=== PATIENT | female | born 1985 | race Caucasian/White ===

== ENCOUNTER 2019-02-09 17:20 | Inpatient (IN) | payer BC ==
[2019-02-09] VITALS (16 sets, daily range): BP systolic 114–135; BP diastolic 61–85; PULSE 71–97; TEMP 98.2–98.7
[~2019-02-09] VITALS: Ht 165.1 cm; Wt 72.3 kg
--- NOTE | 2019-02-09 17:30 | NUR ---
Pt arrives on unit via wheelchair with spouse. States ctx that began at 1600. Bloody show noted. Denies LOF and reports good movement. Changed into clean gown. EFM and toco applied. VSS. SVE per this RN /-[address] Gonzalez notified. Orders for admission. Admission assessment completed. IV started. Labs drawn. LR infusing. Pt updated on POC. Safety reviewed. Call light within reach. No questions or concerns at this time.
[2019-02-09] MEDS ORDERED: PRENATAL MVI (17:45)
[2019-02-09 19:18] LABS: HEMATOCRIT 40.3 % (37.0-47.0); MEAN CELL VOLUME 89 fl (80.0-100.0); MEAN CORPUSCULAR HEMOGLOBIN 31 pg (27.0-31.0); MEAN CORPUSCULAR HGB CONC 35 g/dl (33.0-37.0); MEAN PLATELET VOLUME 10.7 fl (7.4-10.4); PLATELET COUNT 184 K/mm3 (130-400); RED BLOOD COUNT 4.52 M/mm3 (4.10-5.30); REDCELL DISTRIBUTION WIDTH-CV 12.6 % (11.5-14.5)
[2019-02-09 20:21] LABS: BAND 1 % (0-10); LYMPHOCYTE 6 % (20.0-51.0); NEUTROPHILS 87 % (42.0-75.2); PLATELET ESTIMATE NORMAL (NORMAL)
[2019-02-10] VITALS (11 sets, daily range): BP systolic 97–120; BP diastolic 57–79; PULSE 78–95; TEMP 97.8–98.9
--- NOTE | 2019-02-10 00:19 | NUR ---
2149- Dr. Ramirez at bedside, patient 10cm and +2 station, ready to push. 2154- Patient placed in lithotomy, instructed on pushing. 2244- Dr. Gonzalez at nurse's station, updated on patient's progress. 2304- Dr. Gonzalez at bedside assessing progress. 2335- Dr. Gonzalez at bedside for delivery. 0019- Spontaneous delivery of viable female at this time. 0023- Spontaneous delivery of intact placenta, pitocin rapidly infusing at this time. 2 degree laceration repaired per Dr. Gonzalez. EBL 400cc. Apgars 9,9,9.
[2019-02-11 06:25] LABS: HEMATOCRIT 29.7 % (37.0-47.0); HEMOGLOBIN 9.9 g/dl (12.5-16.0)
[2019-02-11 08:15] VITALS: BP 108/64; PULSE 65; TEMP 98.2
[2019-02-11] MEDS ORDERED: IBU600 MG PO (12:50)
[2019-02-11] MEDS ORDERED: PERCOCET 325 MG1 TA2 PO (12:50)
== END 2019-02-11 16:20 | disposition home or self-care (01) | DRG 807 ==
LOC: LDRO 17:20 → LDR 17:41 → OB 02-10 03:00
PROVIDERS: ADMIT Obstetrics & Gynecology
PROC: 0KQM0ZZ Repair Perineum Muscle, Open Approach (ICD-10-PCS; principal; 2019-02-09)
PROC: 10E0XZZ Delivery of Products of Conception, External Approach (ICD-10-PCS; principal; 2019-02-09)
DX: O70.1 Second degree perineal laceration during delivery (principal); Z37.0 Single live birth; Z3A.41 41 weeks gestation of pregnancy
CPT/HCPCS: J2590; J7120

== ENCOUNTER → 2019-02-15 | Outpatient (CLI) | payer BC ==
[~2019-02-15] MED LIST: IBU600 MG PO; PERCOCET 325 MG1 TA2 PO; PRENATAL MVI
--- NOTE | 2019-02-15 14:52 | NUR ---
Pt, Fang Márquez Henrique, presents to walk-in clinic with 5 day old baby girl, Gladys Duenas for a evaluation. Gladys was born by to this mom. She has nursed some with a nipple shield and has some abrasions on the face of the nipples. The breasts are somewhat engorged at this meeting as well. Gladys was born on [birth year] and weighed 7#11.1oz (3490 gms). Today her weight is 7#2.4oz (3242 gms), about 1.5oz less than at Dr. Mohamud's office yesterday. Pt has not pumped or used any bottle feedings for baby. Voids and stools are meeting expectations. She has a clear void upon arrival to clinic and another after . Pt advised on use of cross cradle hold, compression of areola and bringing baby to breast more quickly with latching. FOB advised on helping to keep jaw open wider with latch. Pt states less pain with , no nipple shield used. After nursing bilaterally Gladys had a total weight gain of 2.4oz (68 gms). POC: Breastfeed q 2-3 hours. F/U: February 17 to verify is nursing effectively. All indicators except weight are on track. Questions invited and answered.
== END ==
LOC: OLC 10:11
DX: Z39.1 Encounter for care and examination of lactating mother (principal); Z71.89 Other specified counseling

== ENCOUNTER → 2019-02-17 | Outpatient (CLI) | payer BC ==
--- NOTE | 2019-02-17 14:59 | NUR ---
Pt, Fang Márquez Henrique, presents for outpatient consult with 7 day old baby girl, Gladys Duenas, and her spouse Eliu Duenas, to evaluate as at the walk-in clinic two days ago she was 7% down from weight. Gladys was born on [birth year] and weighed 7#11.1oz (3490 gms). On 02/15/19 she weighed 7#2.4oz (3242 gms), which was a loss from the previoud day at Dr. Mohamud's office. Today Gladys weighs 7#3.9oz (3284 gms), for a gain of 1.5oz in the last 2 days. Feeds, voids and stools are reported to be WNL. Pt is not pumping or providing and supplement feedings. Pt guided on latching, a little timid about bringing baby to breast quickly. After Gladys had a weight gain of 2.8oz (82 gms). POC: Continue ad maria eugenia. F/U: Clinic or appt as desired, none scheduled at this time. Questions invited and answered.
== END ==
LOC: LAC 14:08
DX: Z39.1 Encounter for care and examination of lactating mother (principal); Z71.89 Other specified counseling

== ENCOUNTER → 2019-02-22 | Outpatient (CLI) | payer BC ==
--- NOTE | 2019-02-22 17:15 | NUR ---
Pt, Fang Sandoval Henrique, presents to walk-in clinic with 12 day old baby girl, Gladys Duenas, for a evaluation. They have been seen in clinic for nipple pain and assistance nursing without the nipple sheildPamela Graham was born on [birth year]/10/[birth year] and weighed 7#11.1oz (3490 gms). At clinic on 02/15/19 she weighed 7#2.4oz (3242 gms). They were seen in consult on 02/17/19 and she weighed 7#3.9oz. Her transfer at that feeding was 82ml so they were advised to exclusive breastfeed and follow up at clinic today. Pt reports nipple pain in better. Today Gladys weighs 7#10.5oz for a gain of 6.6oz in 5 days. After independantly and without the nipple shield Gladys has a weight gain of 82gms (2.9oz). POC: continue ad maria eugenia. F/U: Anticipate at clinic next week. Questions invited and answered.
== END ==
LOC: OLC 10:11
DX: Z39.1 Encounter for care and examination of lactating mother (principal); Z71.89 Other specified counseling

== ENCOUNTER → 2019-03-08 | Outpatient (CLI) | payer BC ==
--- NOTE | 2019-03-08 10:38 | NUR ---
Pt, Fang Márquez Henrique, presents to walk-in clinic for evaluation with 26 day old baby girl Gladys Duenas. Gladys was born on [birth year] and weighed 7#11.1oz. They were seen for consult early on because Gladys was slow to gain weight and to clinic a few times to re-evaluate. 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 After today Gladys had a weight gain of 4.3oz (124gms). POC: Continue ad maria eugenia. Start collection of EBM and introduction of bottles to prepare for returning to work. F/U: Clinic and Doctor as needed. Questions invited and answered.
== END ==
LOC: LAC 10:08
DX: Z39.1 Encounter for care and examination of lactating mother (principal); Z71.89 Other specified counseling

== ENCOUNTER → 2019-03-15 | Outpatient (CLI) | payer BC ==
--- NOTE | 2019-03-15 10:50 | NUR ---
Pt, Fang Duenas, into walk in clinic with 4 week old Gladys Duenas for weight check and evaluation. At ( 02/10/19) was 7 # 11.1 oz. Fang reports Gladys to be nursing, on average, 8 times per day and reports diapers to be WNL. Fang also states that Gladys has been spitting up more often after feeds. Today, Gladys's prefeed weight was noted as 10 # 5.6 oz. A gain of nearly a pound since last week's weight of 9 # 6.8 oz. While in clinic, Gladys nursed bilaterally with a total intake of 60 ml. Fang stated Gladys nursed approx 2 hours before coming into clinic so she most likely was not very hungry yet. Fang feels Gladys is cluster feeding in the evenings and is often comfort nursing. Discussed using pacifier after feedings. POC: Continue to feed ad maria eugenia. Continue continue collection of EBM and occasional use of bottle in preperation for return to work. Questions encouraged and answered. Understanding verbalized.
== END ==
LOC: OLC 09:54
DX: Z39.1 Encounter for care and examination of lactating mother (principal); Z71.89 Other specified counseling

== ENCOUNTER → 2019-03-29 | Outpatient (CLI) | payer BC ==
--- NOTE | 2019-03-29 18:53 | NUR ---
Pt, Fang Márquez Henrique, presents to walk in clinic with 6 week old baby girl, Gladys Duenas for a weight check. Onel was born on [birth year] and weighed 7#11.1oz. Her last weight at clinic was on 03/15/19 and she weighed 10#5.6oz. Today she weighs 11#8oz. POC: Continue ad maria eugenia. F/U: clinic as desired, [employer] as scheduled for well baby checks. Questions invited and answered.
== END ==
LOC: OLC 11:44
DX: Z39.1 Encounter for care and examination of lactating mother (principal); Z71.89 Other specified counseling

== ENCOUNTER → 2019-04-05 | Outpatient (CLI) | payer BC ==
--- NOTE | 2019-04-05 12:20 | NUR ---
Pt, Fang Márquez Henrique presents to walk-in with 8 week old baby girl, Jude Duenas, for a evaluation. Gladys was born on [birth year] and weighed 7#11.1oz. Last week she weighed 11#8oz. Today she weighs 11#13.4oz. After Gladys had a weight gain of 4oz. Pt states she has introduced pumping and bottle feeding to prepare for returning to work. POC: continue ad maria eugenia. F/U: As scheduled with distribution lead and clinic as desired. Questions invited and answered.
== END ==
LOC: OLC 11:06
DX: Z39.1 Encounter for care and examination of lactating mother (principal); Z71.89 Other specified counseling

== ENCOUNTER → 2019-04-19 | Outpatient (CLI) | payer BC ==
--- NOTE | 2019-04-19 16:08 | NUR ---
Pt, Fang Márquez Henrique presents to walk-in clinic for a pre and post feed weight of Gladys Duenas, who is now 2 months old. Gladys was born on [birth year] and weighed 7#11.1oz. Two weeks ago at clinic she weighed 11#13.4oz. Pt reports ast week at the doctor's office Gladys weighed 12#6oz. Today her weight is 12#9.2oz, for a little slower growth than has been Lalo trend has been. Pt reports lGadys was diagnosed with thrush and she is now also going upto four hours between feedings. After nursing today Gladys had a weight gain of 4.6oz. Treatment for possible nipple/breast yeast infection reviewed, pt will follow up with OB provider if shooting pains are persistant, will apply a drop of nystatin to nipples after feeding or alternate with vinegar/water solution rinse to nipples. Also reviewed sterilization of feeding and pumping parts. Pt verbalies understanding. POC: Continue BF ad maria eugenia, follow treatment plan for thrush. F/U: With OB for breast pain as indicated, walk-in clinic as desired. Questions invited and answered.
== END ==
LOC: OLC 10:38
DX: Z39.1 Encounter for care and examination of lactating mother (principal); Z71.89 Other specified counseling

== ENCOUNTER → 2019-04-26 | Outpatient (CLI) | payer BC ==
--- NOTE | 2019-04-26 13:55 | NUR ---
Pt, Fang Márquez Henrique, presents to walk-in clinic with 2 month old baby girl, Gladys Duenas, for a weight check. They regularly attend clinic. Gladys was born on [birth year] and weighed 7#11.1oz Last week she weighed 12#9.2oz. Today she weighs 13#0.5oz. Pt has questions about possible breast yeast infection. Gladys has completed treatment for thrush. Pt continues to have random stabbing, stinging breast pain. She has been in contact with Dr. Gonzalez and has received RX for Pittman's Nipple Cream. LC suggests use of Acidophilus to help build immune system, and possible grapefruit seed extract. Also discussed use of EBM during possible Radha infection. Pt verbalizes understanding, questions invited and answered.
== END ==
LOC: LAC 10:33
DX: Z39.1 Encounter for care and examination of lactating mother (principal); Z71.89 Other specified counseling